=== PATIENT | male | born 1940 | race Caucasian/White ===

== ENCOUNTER → 2017-10-07 | Outpatient (CLI) | payer MEDICARE, OTHER | END | disposition home or self-care (01) | LOC: KCIC MRI 09:09 | DX: R51 Headache (principal); R42 Dizziness and giddiness | CPT/HCPCS: 70551 ==

== ENCOUNTER → 2017-10-12 | Outpatient (CLI) | payer MEDICARE, OTHER ==
[2017-10-12] MEDS: IOHEXOL 300 MG/ML 100ML VIAL. IV (09:43)
== END | disposition home or self-care (01) ==
LOC: KCIC CT 08:50
DX: I65.23 Occlusion and stenosis of bilateral carotid arteries (principal); I10 Essential (primary) hypertension; E04.1 Nontoxic single thyroid nodule; I70.90 Unspecified atherosclerosis
CPT/HCPCS: 70496; 70498; Q9967

== ENCOUNTER → 2017-10-19 | Outpatient (CLI) | payer MEDICARE, OTHER | END | disposition home or self-care (01) | LOC: KCIC US 07:59 | DX: E04.1 Nontoxic single thyroid nodule (principal) | CPT/HCPCS: 76536 ==